=== PATIENT | female | born 1945 | race Caucasian/White ===

== ENCOUNTER → 2025-02-10 | Outpatient (CLI) | payer MEDICARE ==
--- NOTE | 2025-02-11 11:17 | MR ---
INDICATION: Patient age:Female; 79 years old; Reason for study: M54.50 LOW BACK PAIN M54.16 LUMBAR RADICULOPATHY; [facility]H. COMPARISONS: No priors. TECHNIQUE: Multi planar, multi sequence imaging was performed utilizing: T1-weighted, T2-weighted, a nd turbo inversion recovery imaging of the lumbar spine. The patient was not given contrast. FINDINGS: The lumbar vertebral bodies do have preserved heights. S-shaped mild scoliotic curvature o f the thoracolumbar spine with levocurvature of the lumbar spine with apex at L3-L4. Grade 1 anteroli sthesis of L3 on L4 and L4-L5. No pars defects. Multilevel anterior osteophytosis. Multilevel disc desiccation is present. Multilevel Schmorl's nodes without surrounding edema to sugg est acute nature. The conus medullaris and the distal spinal cord do appear unremarkable with regards to their signal intensity and morphology. Incidental sacral S2 Tarlov cyst. T12-L1: No significant spinal canal or neural foraminal stenosis. L1-L2: Broad-based disc bulge with bilateral facet arthropathy. Mild central canal stenosis. Mild-to -moderate left and moderate right neural foraminal stenosis. L2-L3: Broad-based disc bulge with level of the buckling and bilateral facet of the contributing to moderate central canal stenosis. Mild to moderate bilateral neural foramina stenosis. L3-L4: Grade 1 anterolisthesis with uncovering of the disc. Broad-based disc bulge with ligamentum f lavum buckling and prominent posterior epidural fat contribute to severe central canal stenosis. Bila teral facet arthropathy. Severe right and mild left neural foraminal stenosis. L4-L5: Grade 1 anterolisthesis with uncovering of the disc. Broad-based disc bulge with bilateral fac et arthropathy and ligamentum flavum buckling resulting in moderate central canal stenosis. Mild to m oderate bilateral neural foraminal stenosis. L5-S1: Broad-based disc bulge with bilateral facet enlargement. Results in mild central canal stenosi s. Mild bilateral neural foraminal stenosis. Other significant findings: Couple right renal thin-walled T2 hyperintense cysts measuring up to 2.3 cm.. IMPRESSION: 1. 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 M ost pronounced at L3-L5. 2. Grade 1 anterolisthesis of L3 on L4 and L4 on L5 without pars defects. 3. Mild S-shaped scoliotic curvature of the thoracolumbar spine. [facility], , 02/11/2025 11:15 AM
== END | disposition home or self-care (01) ==
LOC: RADMRIMAIN 17:03
PROVIDERS: ATTEND Psychiatry & Neurology Neurology
DX: M51.16 Intervertebral disc disorders with radiculopathy, lumbar region (principal); M43.16 Spondylolisthesis, lumbar region; M41.86 Other forms of scoliosis, lumbar region
CPT/HCPCS: 72148